=== PATIENT | female | born 2000 | race African-American/Black ===

== ENCOUNTER 2022-02-25 17:45 | Emergency (ER) | payer SELFPAY ==
[~2022-02-25] VITALS: Ht 170.2 cm; Wt 54.0 kg
[2022-02-25 17:50] VITALS: BP 100/58
== END 2022-02-25 22:29 | disposition left against medical advice (07) ==
LOC: ER 17:45
DX: R10.30 Lower abdominal pain, unspecified (principal); R11.2 Nausea with vomiting, unspecified
CPT/HCPCS: 99281

== ENCOUNTER 2022-02-26 08:48 | Emergency (ER) | payer SELFPAY ==
[~2022-02-26] VITALS: Ht 165.1 cm; Wt 65.0 kg
[2022-02-26 09:03] VITALS: BP 132/76
[2022-02-26] MEDS ORDERED: ONDANSETRON HCL 4MG TABLET PO ONE (09:45)
[2022-02-26 10:33] LABS: BASOPHILS % 0.5 % (0.0-2.0); EOSINOPHILS % 0.1 % (0.0-5.0); HEMATOCRIT. 40.1 % (36.0-48.0); HEMOGLOBIN. 13.8 g/dL (12.0-16.0); LYMPHOCYTES % 20.2 % (20.0-50.0); MEAN CORPUSCULAR HEMOGLOBIN 29.2 pg (28.0-32.0); MEAN PLATELET VOLUME 9.4 fl (7.4-10.4); MONOCYTES % 9.5 % (2.0-8.0); NEUTROPHILS % 69.7 % (40.0-76.0); PLATELET 310 x1000/uL (130-400); RED BLOOD CELL COUNT 4.72 mill/uL (4.2-5.4); RED CELL DISTRIBUTION WIDTH 15.5 % (11.6-14.6)
[2022-02-26 10:42] LABS: INR 1.1; PROTHROMBIN TIME 12.2 sec (9.6-11.0)
[2022-02-26 10:56] LABS: HCG SCREEN NEGATIVE
[2022-02-26 11:10] LABS: CHLORIDE 101 mEq/L (98-107)
[2022-02-26] MEDS ORDERED: POTASSIUM CHLORIDE 20MEQ TABLET SR PO ONE (11:30)
== END 2022-02-26 12:02 | disposition left against medical advice (07) ==
LOC: ER 08:48
DX: R10.84 Generalized abdominal pain (principal); E87.6 Hypokalemia; T76.21XA Adult sexual abuse, suspected, initial encounter
CPT/HCPCS: 36415; 80053; 84703; 85025; 99283